=== PATIENT | female | born 1990 | race Caucasian/White ===

== ENCOUNTER 2021-07-04 07:08 | Day surgery (SDC) | payer BC ==
[2021-06-29 16:21] LABS: Potassium 3.6 mmol/L (3.5-5.1)
[2021-06-29 16:22] LABS: Absolute Lymphocytes (CBC) 2.2 K/uL (0.7-4.9); Hematocrit 39.5 % (36.0-45.0); Lymphocytes % 27.9 % (15.3-44.8); MPV 9.4 fL (7.6-11.3); RBC Red Blood Cell Count 4.45 M/uL (3.86-4.86)
[2021-07-04] MEDS ORDERED: Ringers Lactate 1,000 ML IV ONE (07:14)
[2021-07-04] MEDS ORDERED: NA CHLORIDE 0.9% 50 ML ONE (07:15)
[2021-07-04] MEDS ORDERED: CEFAZOLIN SODIUM 1 GM/VIAL ONE (07:15)
[2021-07-04 07:24] LABS: Specific Gravity 1.025 (1.005-1.030)
[2021-07-04] MEDS ORDERED: FENTANYL CITR 100 MCG/2 ML ONE (08:15)
[2021-07-04] MEDS ORDERED: propofoL 200 MG/20 ML VIAL IV ONE (08:15)
[2021-07-04] MEDS ORDERED: MIDAZOLAM HCL 2 MG/2 ML INJ ONE (08:16)
[2021-07-04] MEDS ORDERED: LIDOCAINE 2% MPF 5 ML VIAL ONE (08:16)
[2021-07-04] MEDS ORDERED: ONDANSETRON 4 MG/2 ML VIAL ONE (08:16)
[2021-07-04] MEDS: BUPIVACAINE 0.5% PF 10 ML VIAL ONE ×2 (08:28→08:37)
[2021-07-04] MEDS ORDERED: dexAMETHasone 4 MG/ML VIAL ONE (08:43)
--- NOTE | 2021-07-04 09:10 | P.BOP ---
Preoperative diagnosis: infected abdominal wall subQ mass Postoperative diagnosis: same Primary procedure: Excisional biopsy infected abdominal wall subQ mass 3x3cm Estimated blood loss: <10cc Specimen: mass, culture Findings: infected abdominal wall subQ mass Anesthesia: General Complications: None Transferred to: Recovery Room Condition: Good
[2021-07-04 09:26] VITALS: O2SAT 100
[2021-07-04 10:17] VITALS: BP 120/87; TEMP 98.1
[2021-07-04] MEDS ORDERED: CODEINE 30MG/APAP 300MG TAB ONE (10:19)
--- NOTE | 2021-07-04 10:28 | OP ---
Date of Procedure: 07/04/2021 Surgeon: Kris Goldsmith MD Preoperative Diagnosis: Infected abdominal wall subcutaneous mass. Postoperative Diagnosis: Infected abdominal wall subcutaneous mass. Procedure: Excisional biopsy of infected abdominal wall subcutaneous mass 3 x 3 cm. Estimated Blood Loss: Less than 10 mL. Specimen: Mass and culture. Finding: Infected abdominal wall subcutaneous mass. Anesthesia: General. Indications: This is a case of a 30-year-old who comes to us with a tender infected abdominal wall m ass. She has been on antibiotics p.o. trying to bring the inflammation and the infection down, now i t is ready for excision. The benefits, alternatives, and risks of excision fully explained which inc lude, but not limited to infection, bleeding, damage to adjacent structures, anesthesia complication, abscess, MN, and even . She also understands this may not relieve her symptoms. She might nee d more than one surgical intervention. We also discussed with her the possibility of using wet-to-dr y packing. Obviously, she is trying to minimize that chance, but she understand that even if we put some stitches, we might allow the area to breathe partially and even some of the stitches may be aneta cj in the next 48 hours if we see that she needs to pack and she preferred that route first. She wa nted to close that. She is going to take her antibiotics and if by any chance the area does not look good in the next 48 hours, then she will allow me to get the stitches out, at least most of them. S he signed a consent. Procedure In Detail: The area of concern was marked by me and the patient in the holding room. The patient was brought to the operating room, placed in supine position. Anesthesia was done without co mplication. Abdominal area was prepped and draped in a sterile fashion. A wedge incision was made o n the skin to include the skin and subcutaneous mass underneath. This goes all the way down to fatty tissue. Mass was excised. Area was irrigated. I then proceeded to close the subcutaneous tissue w ith 3-0 chromic and tissue with 3-0 chromic. The skin was partially closed with 3-0 chrom ic and there was left space in between to allow that to drain. A gauze was placed over the area. Th e patient tolerated the procedure well. The patient is on the way to Recovery in stable condition. DISCHARGE SUMMARY Diagnosis: Infected abdominal wall subcutaneous mass. Procedure: Excisional biopsy of infected abdominal wall subcutaneous mass. Disposition: Home. Activity: As tolerated. No heavy lifting. Follow up in my office this Sunday. NIKO/GWEN Voice ID: [id number] Report ID: [id number]
== END 2021-07-04 10:25 | disposition home or self-care (01) ==
LOC: OR 07:08
PROVIDERS: ATTEND Surgery
PROC: 0JB80ZZ Excision of Abdomen Subcutaneous Tissue and Fascia, Open Approach (ICD-10-PCS; principal; 2021-07-04 08:30)
DX: L72.0 Epidermal cyst (principal); Z20.822 Contact with and (suspected) exposure to COVID-19
CPT/HCPCS: 87070; 85025; 80048; 36415; 87205 ×2; 81025; 88304; 87075; 11403; U0003; J2704; J1100; J2250; J3010; J7120; J2405; J0690